=== PATIENT | female | born 1985 | race Caucasian/White ===

== ENCOUNTER 2018-06-20 21:02 | Emergency (ER) | payer BC ==
[2018-06-20 21:26] VITALS: BP 121/71
[2018-06-20] MEDS ORDERED: NS 0.9% 1000 ML* 1,000 ML IV ONE (21:31)
[2018-06-20] MEDS ORDERED: Ondansetron INJ* 2 MG/ML VIAL IV ONE (21:31)
--- NOTE | 2018-06-20 21:36 | UC ---
Nausea/Vomiting/Diarrhea HPI - HPI Summary HPI Summary: 32 yo patient she has been vomiting all day. Upper abdominal pain , boyfriend was vomiting last night. Stools are normal, denies chills or fever. Denies flank pain or dysuria - History of Current Complaint Chief Complaint: UCGI Stated Complaint: VOMITING Time Seen by Provider: 06/20/18 21:29 Hx Obtained From: Patient Hx Last Menstrual Period: 05/02/18 ?: No Onset/Duration: Sudden Onset, Lasting Hours Pain Intensity: 7 - Allergies/Home Medications Allergies/Adverse Reactions: Allergies Allergy/AdvReac Type Severity Reaction Status Date / Time No Known Allergies Allergy Verified 06/20/18 21:25 Home Medications: Home Medications l-Norgest/E.estradiol-E.estrad [Loseasonique Tablet] 1 tab PO DAILY 06/20/18 [ History Confirmed 06/20/18] PMH/Surg Hx/FS Hx/Imm Hx Previously Healthy: Yes - Surgical History Surgical History: Yes Surgery Procedure, Year, and Place: gallbladder removed. T&A. knee and foot surgery - Family History Known Family History: Positive: Other - thyroid cancer in mother - Social History Alcohol Use: Occasionally Substance Use Type: None Smoking Status (MU): Never Smoked Tobacco Review of Systems Constitutional: Negative Gastrointestinal: Vomiting, Nausea All Other Systems Reviewed And Are Negative: Yes Physical Exam Triage Information Reviewed: Yes Appearance: Well-Appearing, No Pain Distress, Well-Nourished Vital Signs: Initial Vital Signs Temp 97.3 F 06/20/18 21:21 Pulse 77 06/20/18 21:21 Resp 18 06/20/18 21:21 BP 121/71 06/20/18 21:21 Pulse Ox 100 06/20/18 21:21 Vital Signs Reviewed: Yes Eyes: Positive: Conjunctiva Clear ENT: Positive: Hearing grossly normal, Pharynx normal Neck: Positive: Supple, Nontender, No Lymphadenopathy Respiratory: Positive: Chest non-tender, Lungs clear, Normal breath sounds, No respiratory distress Cardiovascular: Positive: RRR, No Murmur, Pulses Normal, Brisk Capillary Refill Abdomen Description: Positive: Nontender, No Organomegaly, Soft Bowel Sounds: Positive: Present Musculoskeletal: Positive: Strength Intact, ROM Intact Naus/Vom/Diarrhea Course/Dx - Course Course Of Treatment: patient who started with nausea and vomiting today without fever or diarrhea. Boyfriend had the same symptoms yesterday. IVF with NS started with IV zofran and pepcid. Patient tolerated fluids well and d/c home with zofran prn, continue oral hydration. F/u referral to PCP for f/u appt in a week - Differential Dx/Diagnosis Provider Diagnoses: Acute nausea and vomiting Discharge - Sign-Out/Discharge Documenting (check all that apply): Patient Departure All imaging exams completed and their final reports reviewed: No Studies - Discharge Plan Condition: Stable Disposition: HOME Patient Education Materials: Dehydration (ED), Acute Nausea and Vomiting (ED) Referrals: No Primary Care Phys,NOPCP [Primary Care Provider] - [facility] [place] [facility] REFERRAL [Outside] - Billing Disposition and Condition Condition: STABLE Disposition: Home
[2018-06-20] MEDS ORDERED: Famotidine IV* 10 MG/ML 2 ML (20 mg) IV SLOW PU ONE (21:39)
== END 2018-06-20 22:32 | disposition home or self-care (01) ==
LOC: UCEAST 21:02
DX: R11.2 Nausea with vomiting, unspecified (principal)
CPT/HCPCS: 96360; 96374; 96375; 99202; G0463; J2405